=== PATIENT | female | born 1965 | race American Indian/Alaskan Native ===

== ENCOUNTER 2016-11-02 14:03 | Outpatient (CLI) | payer BC ==
--- NOTE | 2016-11-02 17:20 | Cat Scan Report ---
FINAL REPORT EXAM: CT ABDOMEN PELVIS WO CON HISTORY: RIGHT LOWER QUADRANT ABDOMINAL PAIN TECHNIQUE: Standard unenhanced CT of the abdomen and pelvis. Coronal and sagittal reconstruction was also performed. Contrast: Oral contrast given. PRIORS: None. FINDINGS: Within the abdomen, the liver, spleen, pancreas, adrenal glands, and kidneys are unremarkable. There ring gallstones are noted in the gallbladder. There is no evidence for renal or ureteral calculi or renal obstruction. No evidence for retroperitoneal or pelvic lymphadenopathy is seen. The bowel loops have normal caliber. No soft tissue mass, fluid collection, inflammatory change, or free air is seen within the abdomen or pelvis. The appendix is normal and dips into the deep right pelvis. Within the pelvis, the bladder is unremarkable. The uterus is not visualized. No evidence for mass or lymphadenopathy is seen in the pelvis. Images through the upper abdomen include the lung bases which demonstrate mild linear atelectasis or scarring in the lingula. Bony structures show no focal abnormalities and demonstrate a subtle, grade 1, mild retrolisthesis of L5 on S1. IMPRESSION: 1. no acute intra-abdominal process noted. Appendix is normal. 2. Cholelithiasis 3. No evidence for renal calculi or obstruction.
== END 2016-11-02 14:04 | disposition home or self-care (01) ==
LOC: CT 14:03
PROVIDERS: ATTEND Internal Medicine
DX: K80.20 Calculus of gallbladder without cholecystitis without obstruction (principal); J98.11 Atelectasis; R10.31 Right lower quadrant pain
CPT/HCPCS: 74176